=== PATIENT | male | born 1970 | race Two or more races ===

== ENCOUNTER 2016-02-28 06:14 | Emergency (ER) | payer OTHER ==
[2016-02-28] MEDS ORDERED: Meclizine TAB* 12.5 MG PO ONE (07:15)
--- NOTE | 2016-02-28 09:08 | ED ---
Macario Lopez Benjamin, scribed for Emil Mercedes MD on 02/28/16 at 0721 . Dizziness - History Of Current Complaint Chief Complaint: EDDizziness Stated Complaint: DIZZINESS Time Seen by Provider: 02/28/16 07:10 Hx Obtained From: Patient Onset/Duration: Still Present Timing: Constant Severity Initially: Mild Severity Currently: Mild Character: Room Spinning, Dizzy Aggravating Factor(s): Other - lying down Alleviating Factor(s): Nothing Associated Signs And Symptoms: Positive: Negative. Negative: Nausea, Visual Changes, Inability to Walk - Allergies/Home Medications Allergies/Adverse Reactions: Allergies Allergy/AdvReac Type Severity Reaction Status Date / Time No Known Allergies Allergy Verified 02/28/16 06:20 PMH/Surg Hx/FS Hx/Imm Hx Infectious Disease History: No Infectious Disease History: Denies: Traveled Outside the in Last 30 Days - Family History Known Family History: Positive: Hypertension, Diabetes Negative: Cardiac Disease - Social History Occupation: Employed Full-time Lives: Alone Alcohol Use: Weekly Substance Use Type: Reports: Marijuana Smoking Status (MU): Never Smoked Tobacco Review of Systems Constitutional: Negative Eyes: Negative Negative: Photophobia, Blurred Vision, Diplopia ENT: Negative Cardiovascular: Negative Respiratory: Negative Negative: Nausea Genitourinary: Negative Musculoskeletal: Negative Skin: Negative Neurological: Other - dizziness Psychological: Normal All Other Systems Reviewed And Are Negative: Yes Physical Exam Triage Information Reviewed: Yes Vital Signs On Initial Exam: Initial Vitals Temp Pulse Resp BP Pulse Ox 97.3 F 81 22 130/89 100 02/28/16 06:18 02/28/16 06:18 02/28/16 06:18 02/28/16 06:18 02/28/16 06:18 Vital Signs Reviewed: Yes Appearance: Positive: Well-Appearing, No Pain Distress, Well-Nourished Skin: Positive: Warm, Skin Color Reflects Adequate Perfusion, Dry Head/Face: Positive: Normal Head/Face Inspection Eyes: Positive: Normal ENT: Positive: Normal ENT inspection Neck: Positive: Supple, Nontender Respiratory/Lung Sounds: Positive: Clear to Auscultation, Breath Sounds Present Cardiovascular: Positive: RRR Abdomen Description: Positive: Nontender, Soft Bowel Sounds: Positive: Present Musculoskeletal: Positive: Strength/ROM Intact Neurological: Positive: Sensory/Motor Intact, Alert, Oriented to Person Place, Time, CN Intact II-III, Reflexes Intact Psychiatric: Positive: Affect/Mood Appropriate - [place] Coma Scale Coma Scale Total: 15 Diagnostics - Vital Signs Vital Signs Temp Pulse Resp BP Pulse Ox 02/28/16 06:18 97.3 F 81 22 130/89 100 - Laboratory Lab Statement: Any lab studies that have been ordered have been reviewed, and results considered in the medical decision making process. - EKG 0620 Cardiac Rate: NL EKG Rhythm: Sinus Rhythm EKG Interpretation: early repol. Dizzy Course/Dx - Course Course Of Treatment: Mr. Barnett presented with a good story for peripheral vertigo with room spinning aggravated by movement (especially lying down) and nausea. I could not detect any nystagmus however. He was given meclizine and did report subjective improvement. At that point I performed the Basil-Halpike maneuvers and he was positive to the left with the eliciting of both symptoms and nystagmus. This is likely either viral (a friend he was visiting with last night reports not feeling well this AM) or calcium related and I will treat him symptomatically and recommended the Artis maneuvers if not improving in 1-2 days. If still not improving, he should F/U. - Diagnoses Provider Diagnoses: Peripheral vertigo involving left ear Discharge - Discharge Plan Condition: Stable Disposition: HOME Prescriptions: Meclizine TAB* [Antivert 12.5 TAB*] 25 mg PO TID #20 tab Ondansetron ODT TAB* [Zofran Odt TAB*] 4 mg PO Q6H PRN #20 tab.odt PRN Reason: Nausea Patient Education Materials: Benign Paroxysmal Positional Vertigo (ED) Referrals: Angela Gurrola MD [Primary Care Provider] - Additional Instructions: You Can Find Instructions and Information about Artis Maneuver Online. The documentation as recorded by the Macario hooper Benjamin accurately reflects the service I personally performed and the decisions made by me, Emil Mercedes MD.
[2016-02-28 09:15] VITALS: BP 124/95
== END 2016-02-28 09:10 | disposition home or self-care (01) ==
LOC: ED 06:14
DX: R42 Dizziness and giddiness (principal)
CPT/HCPCS: 36415; 86703; 93005; 99283; A9270-GY